=== PATIENT | male | born 1980 | race Caucasian/White ===

== ENCOUNTER → 2018-10-09 | Outpatient (CLI) | payer OTHER | END | disposition home or self-care (01) | LOC: RAH 14:52 | PROVIDERS: ATTEND Otolaryngology Plastic Surgery within the Head & Neck | DX: J32.8 Other chronic sinusitis (principal) | CPT/HCPCS: 70486 ==

== ENCOUNTER 2022-09-18 10:43 | Emergency (ER) | payer OTHER ==
[~2022-09-18] VITALS: Ht 167.6 cm; Wt 65.8 kg
[2022-09-18 12:00] LABS: BASOPHILS % (AUTO) 0.4 % (0.0-5.0); EOSINOPHILS % (AUTO) 0.8 % (0.0-8.0); HEMATOCRIT 42.1 % (42-54); LYMPHOCYTES % (AUTO) 29.1 % (21.0-51.0); MEAN CORPUSCULAR HEMOGLOBIN 28.4 pg (27.0-33.0); MEAN CORPUSCULAR HGB CONC 32.8 g/dL (32.0-36.0); MEAN CORPUSCULAR VOLUME 86.6 fL (79-99); MONOCYTES % (AUTO) 7.5 % (3.0-13.0); NEUTROPHILS % (AUTO) 61.4 % (40.0-77.0); PLATELET COUNT (AUTO) 258 K/uL (130-400); RED BLOOD CELL COUNT(AUTO) 4.86 MIL/uL (4.50-6.20); RED CELL DISTRIBUTION WIDTH 12.9 % (11.0-15.5); WHITE BLOOD COUNT (AUTO) 5.3 K/uL (4.8-10.8)
[2022-09-18] MEDS ORDERED: ONDANSETRON 4MG INJ IVP ONE (12:00)
[2022-09-18] MEDS ORDERED: 0.9%NACL 1000ML 1,000 ML IV ONE (12:00)
[2022-09-18] MEDS ORDERED: KETOROLAC 15MG/ML VIAL (15MG/ML) IV ONE (12:00)
[2022-09-18] MEDS ORDERED: MORPHINE 4 MG SYG IVP ONE (12:00)
[2022-09-18 12:10] LABS: CREATININE 0.9 mg/dL (0.5-1.5); POTASSIUM 4.7 mmol/L (3.5-5.1)
[2022-09-18 12:12] LABS: APPEARANCE,URINE CLEAR (CLEAR); BILIRUBIN,URINE NEGATIVE (NEGATIVE); COLOR,URINE LIGHT-YELLOW (YELLOW); GLUCOSE, URINE (UA) NEGATIVE (NEGATIVE); KETONES,URINE NEGATIVE (NEGATIVE); LEUKOCYTE ESTERASE ,URINE NEGATIVE Leu/uL (NEGATIVE); NITRATE,URINE NEGATIVE (NEGATIVE); OCCULT BLOOD,URINE NEGATIVE (NEGATIVE); PH,URINE 5.5 (5.0-8.0); PROTEIN,URINE NEGATIVE (NEGATIVE); UROBILINOGEN,URINE 0.2 mg/dL (0.2-1.0)
[2022-09-18 12:16] LABS: TOTAL PROTEIN, SERUM 7.5 g/dL (6.0-8.3)
[2022-09-18] MEDS ORDERED: MORPHINE 2 MG SYG ONE (12:25)
[2022-09-18] MEDS ORDERED: MORPHINE 2 MG SYG IVP STA (12:26)
[2022-09-18] MEDS ORDERED: NAPR500T6 PO (16:08)
[2022-09-18] MEDS ORDERED: CYCL10TA16 PO (16:08)
[2022-09-18 16:28] VITALS: BP 138/93
== END 2022-09-18 16:30 | disposition home or self-care (01) ==
LOC: EDH 10:43
DX: S39.012A Strain of muscle, fascia and tendon of lower back, initial encounter (principal); X58.XXXA Exposure to other specified factors, initial encounter; Y93.89 Activity, other specified; Y92.89 Other specified places as the place of occurrence of the external cause; Y99.8 Other external cause status
CPT/HCPCS: 99285; 74176; 96374; 96375; 96361; 80053; 85025; 83605; 81003; 36415; J7030; J2405; J1885; J2270

== ENCOUNTER 2023-10-07 14:27 | Emergency (ER) | payer OTHER ==
[~2023-10-07] VITALS: Ht 170.2 cm; Wt 64.9 kg
[~2023-10-07 14:27] MED LIST: CYCL10TA16 PO; NAPR500T6 PO
[2023-10-07] MEDS ORDERED: CYCL10TA16 PO (16:51)
[2023-10-07] MEDS ORDERED: MELO-106 PO (16:51)
[2023-10-07] MEDS ORDERED: ACET-2079 PO (16:51)
[2023-10-07] MEDS: HYDROCODONE/ACETAMINOPHEN 5/325 MG TAB PO ONE (17:07)
[2023-10-07 17:21] VITALS: BP 145/81; PULSE 85; RESP 18; O2SAT 98
== END 2023-10-07 17:21 | disposition home or self-care (01) ==
LOC: EDH 14:27
DX: S82.145A Nondisplaced bicondylar fracture of left tibia, initial encounter for closed fracture (principal); M25.462 Effusion, left knee; K21.9 Gastro-esophageal reflux disease without esophagitis; W11.XXXA Fall on and from ladder, initial encounter; Y93.89 Activity, other specified; Y92.89 Other specified places as the place of occurrence of the external cause; Y99.8 Other external cause status
CPT/HCPCS: 29505; 73564

== ENCOUNTER 2023-10-17 15:20 | Inpatient (IN) | payer OTHER ==
[~2023-10-17] VITALS: Ht 170.2 cm; Wt 69.4 kg
[~2023-10-17 15:20] MED LIST changes: +ACET-2079 PO; +MELO-106 PO
[2023-10-17] MEDS: HYDROCODONE/ACETAMINOPHEN 10/325 MG TAB PO ONE (17:32)
[2023-10-17 17:43] LABS: BASOPHILS # (AUTO) 0.03 K/uL (0.00-0.20); BASOPHILS % (AUTO) 0.5 % (0.0-5.0); EOSINOPHILS % (AUTO) 1.5 % (0.0-8.0); HEMATOCRIT 45.2 % (42-54); IMMATURE GRANULOCYTE ABSOLUTE 0.09 K/uL (0-1); LYMPHOCYTES # (AUTO) 1.4 K/uL (1.0-4.8); LYMPHOCYTES % (AUTO) 20.7 % (21.0-51.0); MEAN CORPUSCULAR HEMOGLOBIN 28.6 pg (27.0-33.0); MEAN CORPUSCULAR HGB CONC 33.2 g/dL (32.0-36.0); MEAN CORPUSCULAR VOLUME 86.1 fL (79-99); MONOCYTES # (AUTO) 0.5 K/uL (0.1-1.0); MONOCYTES % (AUTO) 7.3 % (3.0-13.0); NEUTROPHILS # (AUTO) 4.5 K/uL (1.8-7.7); NEUTROPHILS % (AUTO) 68.6 % (40.0-77.0); PLATELET COUNT (AUTO) 275 K/uL (130-400); RED BLOOD CELL COUNT(AUTO) 5.25 MIL/uL (4.50-6.20); RED CELL DISTRIBUTION WIDTH 12.9 % (11.0-15.5); WHITE BLOOD COUNT (AUTO) 6.6 K/uL (4.8-10.8)
[2023-10-17 17:58] LABS: INR 0.96 (0.85-1.15); PROTHROMBIN TIME 11.4 SEC (9.6-11.6)
[2023-10-17 18:00] LABS: PARTIAL THROMBOPLASTIN TIME 33.1 SEC (26.3-35.5)
[2023-10-17 18:29] LABS: POTASSIUM 4.1 mmol/L (3.5-5.1)
[2023-10-17] MEDS ORDERED: ACETAMINOPHEN 500 MG TABLET PO PRN (18:30)
[2023-10-17 18:33] LABS: ALBUMIN 3.9 g/dL (3.5-5.0); BILIRUBIN,TOTAL 0.3 mg/dL (0.2-1.0); TOTAL PROTEIN, SERUM 7.7 g/dL (6.0-8.3)
[2023-10-17] MEDS: PANTOPRAZOLE 40 MG TAB DR PO SCH (19:42)
[2023-10-17] MEDS: 0.9%NACL 1000ML 1,000 ML IV SCH (19:42)
[2023-10-18 04:00] VITALS: BP 125/78; PULSE 81; RESP 18
[2023-10-18 05:24] LABS: BASOPHILS # (AUTO) 0.05 K/uL (0.00-0.20); BASOPHILS % (AUTO) 0.9 % (0.0-5.0); EOSINOPHILS # (AUTO) 0.13 K/uL (0.00-0.70); EOSINOPHILS % (AUTO) 2.3 % (0.0-8.0); HEMATOCRIT 40.2 % (42-54); IMMATURE GRANULOCYTE ABSOLUTE 0.06 K/uL (0-1); LYMPHOCYTES # (AUTO) 1.8 K/uL (1.0-4.8); LYMPHOCYTES % (AUTO) 32.1 % (21.0-51.0); MEAN CORPUSCULAR HEMOGLOBIN 27.9 pg (27.0-33.0); MEAN CORPUSCULAR HGB CONC 33.1 g/dL (32.0-36.0); MEAN CORPUSCULAR VOLUME 84.3 fL (79-99); MONOCYTES # (AUTO) 0.6 K/uL (0.1-1.0); MONOCYTES % (AUTO) 11.2 % (3.0-13.0); NEUTROPHILS % (AUTO) 52.4 % (40.0-77.0); PLATELET COUNT (AUTO) 266 K/uL (130-400); RED BLOOD CELL COUNT(AUTO) 4.77 MIL/uL (4.50-6.20); WHITE BLOOD COUNT (AUTO) 5.7 K/uL (4.8-10.8)
[2023-10-18 05:31] LABS: ALBUMIN 3.2 g/dL (3.5-5.0); BILIRUBIN,TOTAL 0.3 mg/dL (0.2-1.0); POTASSIUM 4.3 mmol/L (3.5-5.1); TOTAL PROTEIN, SERUM 6.5 g/dL (6.0-8.3)
[2023-10-18 06:00] VITALS: BP 125/78; PULSE 81; RESP 18
[2023-10-18 08:00] VITALS: BP 128/95; PULSE 91; RESP 18; O2SAT 99
[2023-10-18 12:00] VITALS: BP 179/91; PULSE 98; RESP 18
[2023-10-18 16:00] VITALS: BP_SYST 138; BP_DIAS 78; BP_DIAS 94; PULSE 73; PULSE 89; RESP 18
[2023-10-18 20:00] VITALS: BP 139/95; PULSE 85; RESP 18; O2SAT 98
[2023-10-19] VITALS (30 sets, daily range): BP systolic 111–145; BP diastolic 62–107; PULSE 67–106; RESP 12–20; O2SAT 100
[2023-10-19] MEDS: KETOROLAC 15MG/ML VIAL (15MG/ML) IV PRN (03:50)
[2023-10-19 05:28] LABS: HEMATOCRIT 43.8 % (42-54); MEAN CORPUSCULAR HEMOGLOBIN 28.4 pg (27.0-33.0); MEAN CORPUSCULAR HGB CONC 32.6 g/dL (32.0-36.0); MEAN CORPUSCULAR VOLUME 86.9 fL (79-99); RED BLOOD CELL COUNT(AUTO) 5.04 MIL/uL (4.50-6.20); RED CELL DISTRIBUTION WIDTH 12.8 % (11.0-15.5); WHITE BLOOD COUNT (AUTO) 4.9 K/uL (4.8-10.8)
[2023-10-19 05:45] LABS: ALBUMIN 3.2 g/dL (3.5-5.0); BILIRUBIN,TOTAL 0.4 mg/dL (0.2-1.0); POTASSIUM 4.9 mmol/L (3.5-5.1); TOTAL PROTEIN, SERUM 6.7 g/dL (6.0-8.3)
[2023-10-19] MEDS: LACTATED RINGERS 1000ML 1,000 ML IV ONE (11:47)
[2023-10-19] MEDS ORDERED: FENTANYL CITRATE PF 50 MCG/1 ML 2ML VIAL ONE ×2 (12:30→13:41)
[2023-10-19] MEDS ORDERED: ROCURONIUM BROMIDE 10MG/1ML 5ML VL ONE (12:30)
[2023-10-19] MEDS ORDERED: LIDOCAINE PF 100MG/5ML (2%) SYRINGE 5ML ONE (12:30)
[2023-10-19] MEDS ORDERED: GLYCOPYRROLATE 0.2 MG/ML 5 ML VIAL ONE (12:30)
[2023-10-19] MEDS ORDERED: PROPOFOL 10 MG/ML 20ML VIAL IV ONE (12:30)
[2023-10-19] MEDS: FAMOTIDINE 20MG VIAL IV ONE ×2 (12:44)
[2023-10-19] MEDS: FENTANYL CITRATE PF 50 MCG/1 ML 2ML VIAL ONE (12:44)
[2023-10-19] MEDS: FENTANYL CITRATE PF 50 MCG/1 ML 2ML VIAL IVP ONE (12:44)
[2023-10-19] MEDS ORDERED: MIDAZOLAM HCL 1 MG/ML 2ML VIAL ONE (13:12)
[2023-10-19] MEDS ORDERED: CEFAZOLIN SODIUM 1 GM VIAL ONE (13:23)
[2023-10-19] MEDS: CEFAZOLIN SODIUM 2 GM VIAL IVPB ONE (13:36)
[2023-10-19] MEDS ORDERED: ONDANSETRON 4MG INJ ONE (13:38)
[2023-10-19] MEDS ORDERED: MEPERIDINE-PF 25 MG/ML SYG ONE (13:42)
[2023-10-19] MEDS: HYDROMORPHONE 1 MG INJ ONE (14:11)
[2023-10-19] MEDS ORDERED: ROPIVACAINE 0.5% 5MG/ML 30ML ONE (14:41)
[2023-10-19] MEDS: ONDANSETRON 4MG INJ IVP PRN (16:51)
[2023-10-20] VITALS (8 sets, daily range): BP systolic 128–143; BP diastolic 85–102; PULSE 102–117; RESP 19–20; O2SAT 97–100
[2023-10-20] MEDS: MORPHINE 2 MG SYG IVP PRN (00:38)
[2023-10-20 03:27] LABS: HEMATOCRIT 37.4 % (42-54); MEAN CORPUSCULAR HEMOGLOBIN 28.4 pg (27.0-33.0); MEAN CORPUSCULAR HGB CONC 33.2 g/dL (32.0-36.0); MEAN CORPUSCULAR VOLUME 85.6 fL (79-99); RED BLOOD CELL COUNT(AUTO) 4.37 MIL/uL (4.50-6.20); RED CELL DISTRIBUTION WIDTH 12.6 % (11.0-15.5); WHITE BLOOD COUNT (AUTO) 8.5 K/uL (4.8-10.8)
[2023-10-20 03:45] LABS: ALBUMIN 3.1 g/dL (3.5-5.0); BILIRUBIN,TOTAL 0.4 mg/dL (0.2-1.0); POTASSIUM 3.7 mmol/L (3.5-5.1); TOTAL PROTEIN, SERUM 6.4 g/dL (6.0-8.3)
[2023-10-20] MEDS: ACETAMINOPHEN WITH CODEINE 1 TAB TAB PO PRN (08:12)
[2023-10-20] MEDS: PANTOPRAZOLE 40 MG/VIAL IVP SCH (08:59)
[2023-10-20] MEDS: ENOXAPARIN SODIUM 40 MG/0.4 ML SYRINGE SQ ONE (14:45)
[2023-10-20] MEDS: HYDROCODONE/ACETAMINOPHEN 5/325 MG TAB PO PRN (15:56)
[2023-10-21 04:00] VITALS: BP 143/87; PULSE 111; RESP 20
[2023-10-21 04:19] LABS: HEMATOCRIT 35.9 % (42-54); MEAN CORPUSCULAR HEMOGLOBIN 29.4 pg (27.0-33.0); MEAN CORPUSCULAR HGB CONC 33.7 g/dL (32.0-36.0); MEAN CORPUSCULAR VOLUME 87.1 fL (79-99); RED BLOOD CELL COUNT(AUTO) 4.12 MIL/uL (4.50-6.20); RED CELL DISTRIBUTION WIDTH 12.9 % (11.0-15.5)
[2023-10-21 04:43] LABS: POTASSIUM 4.1 mmol/L (3.5-5.1)
[2023-10-21 07:20] VITALS: BP 138/91; PULSE 94; RESP 20
[2023-10-21] MEDS: ENOXAPARIN SODIUM 40 MG/0.4 ML SYRINGE SQ SCH (09:10)
[2023-10-21 10:03] VITALS: O2SAT 98
[2023-10-21 11:20] VITALS: BP 143/95; PULSE 105; RESP 20
== END 2023-10-21 15:10 | disposition home or self-care (01) | DRG 493 ==
LOC: EDH 15:20 → EDHIP 18:26 → 3DH 23:52
PROVIDERS: ADMIT Internal Medicine; ATTEND Internal Medicine
PROC: 0QSH04Z Reposition Left Tibia with Internal Fixation Device, Open Approach (ICD-10-PCS; principal; 2023-10-19 13:05)
DX: S82.142A Displaced bicondylar fracture of left tibia, initial encounter for closed fracture (principal); M25.062 Hemarthrosis, left knee; E78.00 Pure hypercholesterolemia, unspecified; K21.9 Gastro-esophageal reflux disease without esophagitis; G89.29 Other chronic pain; M54.9 Dorsalgia, unspecified; R20.0 Anesthesia of skin; R20.2 Paresthesia of skin; W11.XXXA Fall on and from ladder, initial encounter; Y93.89 Activity, other specified; Y92.89 Other specified places as the place of occurrence of the external cause; Y99.8 Other external cause status
CPT/HCPCS: 36415; 71045; 73562; 73700; 80048; 80053; 83735; 84484; 85025; 85027; 85610; 85730; 86850; 86900; 86901; 93005; A4606; C9113; G0378; J0690; J1170; J1650; J1885; J2001; J2175; J2250; J2270; J2405; J2704; J2795; J3010; J3490; J7120; A4216; A4222; A4223